=== PATIENT | male | born 1965 | race Caucasian/White ===

== ENCOUNTER 2023-02-07 08:49 | Emergency (ER) | payer OTHER, SELFPAY ==
[2023-02-07] VITALS (8 sets, daily range): BP systolic 101–132; BP diastolic 73–88; PULSE 74–96; RESP 16–18; TEMP 36.7; O2SAT 94–97; BMI 24.3
--- NOTE | 2023-02-07 09:08 | ED.GENADULT ---
HPI - General Adult General Time Seen by Provider: 09:08 Date Seen: 02/07/23 Chief complaint: Fever Stated complaint: hot flashes, feeling faint Time Seen by Provider: 02/07/23 08:57 Source: patient and RN notes reviewed Mode of arrival: ambulatory Limitations: no limitations History of Present Illness HPI narrative: This 57-year-old male is coming in with complaint of hot flashes, possible fevers. He is having episodic sweats and feeling hot. When I come into the room, he has cool washcloth on his forehead as he was feeling Related Data Home Medications Medication Instructions Recorded Confirmed No Known Home Medications 02/07/23 02/07/23 Allergies Allergy/AdvReac Type Severity Reaction Status Date / Time No Known Drug Allergies Allergy Verified 02/07/23 09:03 Review of Systems Status of ROS: Reports: 6 or more systems reviewed and unremarkable except as noted in History and below PFSH PFSH Social History Smoking Status: Former smoker How often do you have a drink containing alcohol: never AUDIT-C Alcohol total score: 0 Non-prescribed substance use: denies use Non-prescribed substance use details: 3 months off of marijuana Exam Const: Vital Signs, click to edit/add: Vital Signs - 24 hr 02/07/23 09:03 02/07/23 09:16 02/07/23 10:03 Temperature 98.1 F Pulse Rate [Pulse Oximeter] 85 78 Pulse Rate [orthos tatic lying Left P ulse Oximeter] Pulse Rate [orthos tatic sitting Left Pulse Oximeter] Pulse Rate [orthos tatic standing Lef t Pulse Oximeter] Respiratory Rate 18 18 Blood Pressure [Ri ght Upper Arm] 122/84 132/84 Blood Pressure [or thostatic lying Ri ght Arm] Blood Pressure [or thostatic sitting Right Arm] Blood Pressure [or thostatic standing Right Arm] Pulse Oximetry 94 96 96 Oxygen Delivery Me thod Room Air Room Air 02/07/23 10:06 02/07/23 10:06 02/07/23 10:07 Temperature Pulse Rate [Pulse Oximeter] 74 81 Pulse Rate [orthos tatic lying Left P ulse Oximeter] 74 Pulse Rate [orthos tatic sitting Left Pulse Oximeter] 81 Pulse Rate [orthos tatic standing Lef t Pulse Oximeter] 86 Respiratory Rate 16 16 Blood Pressure [Ri ght Upper Arm] 121/77 125/82 Blood Pressure [or thostatic lying Ri ght Arm] 121/77 Blood Pressure [or thostatic sitting Right Arm] 125/82 Blood Pressure [or thostatic standing Right Arm] 101/73 Pulse Oximetry 96 96 Oxygen Delivery Me thod 02/07/23 10:08 Temperature Pulse Rate [Pulse Oximeter] 96 Pulse Rate [orthos tatic lying Left P ulse Oximeter] Pulse Rate [orthos tatic sitting Left Pulse Oximeter] Pulse Rate [orthos tatic standing Lef t Pulse Oximeter] Respiratory Rate 16 Blood Pressure [Ri ght Upper Arm] 101/73 Blood Pressure [or thostatic lying Ri ght Arm] Blood Pressure [or thostatic sitting Right Arm] Blood Pressure [or thostatic standing Right Arm] Pulse Oximetry 96 Oxygen Delivery Me thod This 57-year-old male is alert, interactive, no apparent distress. Sclera clear, conjugate gaze, symmetrical facial function. Anterior nares appear normal, mucosa looks normal. Oropharynx with normal mucosa, posterior pharynx looks normal, tongue protrudes midline. Both canals are blocked with cerumen, external ears normal. Neck is supple, no cervical adenopathy, no thyromegaly masses or nodules, no jugular venous distension. He sits up easily, lungs are clear, good air entry, no wheezing or crackles. CV regular rate and rhythm, no murmur, normal S1-S2, no S3 or S4. Abdomen is soft, nontender, nondistended, no organomegaly. Arms and legs are grossly neurologically intact. Patient was ambulatory into the ED of his own accord. I see no rash on inspection skin visualized. Documenting provider has reviewed patient's vital signs: yes Course Course ED Course: It seems that this patient is describing hot flashes but fevers certainly could be a possibility. Need to consider fever of unknown origin. Did review [employer]To[employer], will follow their initial pathway as far as labs. Will be getting a chest x-ray. Will also obtain EKG and troponin, have nursing staff do orthostatic vitals given that he felt a bit faint this morning. Differential is broad at this time, could be infectious and multiple systems of infectious etiology or possible including but not limited to endocarditis, respiratory infection, viral pathology, tuberculosis, HIV, do need to consider cardiac manifestations as well. EKG is already reviewed in is reassuring. Will have him on pulse oximetry while here. Reevaluation(s) Time of Reevaluation #1: 09:38 Reevaluation #1: Patient observed ambulating to and fro from his chest x-ray. Time of Reevaluation #2: 11:46 Reevaluation #2: Reviewed with patient that he is COVID positive, chest x-ray is not showing any evidence of pneumonia, although her labs are stable. He is not feeling any chest pain, not short of breath, not hypoxic. I do not feel he needs any advanced imaging. His biggest complaints are that he took the NyQuil and then felt faint after that. He is having the night sweats, decreased appetite, insomnia issues on further discussion. He really believes his symptoms have been present since the beginning of January, thus, he does not meet criteria for treatment. He certainly out of the treatment window and have reviewed that with him. I reviewed with him that we unfortunately have nothing to fix his symptoms. He can try [id number] medicines. He asked if was located use ibuprofen, he certainly can. Would recommend that he continue to observe his symptoms, he may be someone that has more prolonged COVID symptoms, did review long COVID. This is his 1st episode of COVID. He may anticipate a little longer illness since this is potentially his 1st exposure to COVID. We discussed signs and symptoms for him to need to return to the ED such as worsening of his symptoms, chest pain or shortness of breath. If he is just not improving over the next 1-2 weeks, follow up in clinic would be appropriate. Did review with him that we did start on initial workup of night sweats/fever of unknown origin. I do not feel that we need to proceed down that pathway as we do have a source with him being COVID positive. Reviewed his lab work. Vital Signs Vital signs: Initial Vital Signs Temperature 98.1 F 02/07/23 09:03 Temperature Source Temporal Artery Scan 02/07/23 09:03 Pulse Rate 85 02/07/23 09:03 Respiratory Rate 18 02/07/23 09:03 Blood Pressure 122/84 02/07/23 09:03 Blood Pressure Mean 96 02/07/23 09:03 Blood Pressure Position Sitting 02/07/23 09:03 Pulse Oximetry 94 02/07/23 09:03 Oxygen Delivery Method Room Air 02/07/23 09:03 Vital Signs Temperature 98.1 F 12/14/23 09:03 Pulse Rate 85 02/07/23 09:03 Respiratory Rate 18 02/07/23 09:03 Blood Pressure 122/84 02/07/23 09:03 Pulse Oximetry 94 02/07/23 09:03 Oxygen Delivery Method Room Air 02/07/23 09:03 Temperature 98.1 F 02/07/23 09:03 Pulse Rate 96 02/07/23 10:08 Respiratory Rate 16 02/07/23 10:08 Blood Pressure 101/73 02/07/23 10:08 Pulse Oximetry 96 02/07/23 10:08 Oxygen Delivery Method Room Air 02/07/23 10:03 Medical Decision Making Lab Data Lab results reviewed: Yes I reviewed the patient's lab results Labs: Lab Results 02/07/23 02/07/23 02/07/23 Range/Units 09:00 09:19 09:25 WBC 5.60 (4.50-11.00) K/uL RBC 5.23 (4.30-5.90) m/uL Hgb 15.4 (13.5-17.5) gm/dL Hct 44.4 (37.0-53.0) % MCV 85 (80-100) fL MCH 29 (26-34) pg MCHC 35 (32-36) gm/dL RDW Coeff of Nilam 12.4 (11.5-15.5) % Plt Count 224 (140-440) K/uL Neut % (Auto) 75.2 H (42.0-72.0) % Lymph % (Auto) 14.6 L (20-44) % [place] % (Auto) 7.7 (0.0-11.0) % Eos % (Auto) 2.3 (0.0-7.0) % Baso % (Auto) 0.2 (0.0-3.0) % Neut # (Auto) 4.20 (1.7-7.0) K/uL Lymph # (Auto) 0.80 L (0.90-2.90) K/uL [place] # (Auto) 0.40 (0.00-0.90) K/UL Eos # (Auto) 0.13 (0.00-0.50) K/uL Baso # (Auto) 0.01 (0.00-0.30) K/uL Abs Immat Gran (auto) 0.00 (0.00-0.30) K/uL Imm/Tot Granulo (auto) 0.0 % ESR 2 (2-15) mm/hr Sodium 135 (135-149) mmol/L Potassium 4.0 (3.6-5.1) mmol/L Chloride 106 (96-114) mmol/L Carbon Dioxide 22 (20-32) mmol/L Anion Gap 7 (7-15) mEq/L BUN 14 (7-30) mg/dL Creatinine 0.8 (0.5-1.5) mg/dL Estimated Creat Clear 99.75 Estimated GFR 104 ml/min Glucose 122 H (60-115) mg/dL Calcium 8.2 L (8.4-10.6) mg/dL Total Bilirubin 0.9 (0.1-1.5) mg/dL AST 29 (12-35) U/L ALT 31 (4-50) U/L Alkaline Phosphatase 83 (40-150) U/L Troponin I < 0.01 L (0.01-0.04) ng/mL C-Reactive Protein < 0.5 L (0.5-1.0) mg/dL Total Protein 6.6 (6.0-8.3) g/dL Albumin 4.1 (3.3-5.0) g/dL TSH 1.050 (0.270-4.200) uIU/mL Urine Color Ashley A (Yellow) Urine Appearance Clear (Clear) Urine pH 6.5 (5.0-8.5) Ur Specific [place] 1.025 (1.000-1.030) Urine Protein Trace A (Negative) Urine Glucose (UA) Negative (Negative) Urine Ketones Trace A (Negative) Urine Blood Trace-intact A (Negative) Urine Nitrite Negative (Negative) Urine Bilirubin 1+ A (Negative) Urine Urobilinogen 2.0 A (0.2-1.0) Ur Leukocyte Esterase Negative (Negative) Urine RBC 0-2 (0-2) Urine WBC 0-2 (0-5) Ur Squamous Epith Cells Few (None-Few) Amorphous Sediment Few A (None) Urine Bacteria Few A (None) Urine Mucus Few A (None) SARS-CoV-2 (PCR) POSITIVE SARS-CoV-2 A (Negative) HIV 1&2 Ab/P24 Ag 4thGn Negative (Negative) Influenza Type A (PCR) Negative PCR FLU A (Negative) Influenza Type B (PCR) Negative PCR FLU B (Negative) RSV (PCR) Negative PCR RSV (Negative) Imaging Data Chest x-ray: Attestation: I have reviewed the pertinent imaging results. My impression: I see no acute pathology on my preliminary review of his chest x-ray. Radiologist's impression: Patient: ALLYSSA GOODE Facility:?[facility] Patient ID:?[id number] Site Patient ID:?[id number]. Site :?[id number] Study:?XRay Chest 2V-02/07/2023 9:42:45 AM Ordering Physician:Nickolas Ennis Final Report: INDICATION: Hot flashes, night sweats, congestion and weakness COMPARISON: None TECHNIQUE: PA and lateral views of the chest were acquired FINDINGS: TUBES AND LINES: None. HEART AND MEDIASTINUM: The heart size is normal. The mediastinal contour appears normal for patient age. LUNGS AND PLEURAL SPACES: The lungs appear normal.The pleural spaces are unremarkable. OSSEOUS STRUCTURES: Age-appropriate appearance. No acute focal finding. IMPRESSION: No evidence of active pulmonary disease. Dictated by Rodney Hernández MD @ 02/07/2023 10:02:20 AM (Electronic Signature) ECG Data Attestation: I personally reviewed and interpreted this ECG as follows: (Normal sinus rhythm, 74 beats per minute. No evidence of ischemia. QT corrected 426 milliseconds.) Prior ECG tracings: not available for review Discharge Plan Discharge Clinical Impression: COVID-19 Patient Disposition: Home, Self-Care Condition: Stable Instructions: COVID-19 (Coronavirus Disease 2019) (ED), How to Recover from COVID-19 at Home (ED), Long COVID (ED) Additional Instructions: It is very important for you to stay hydrated. Try to eat some small snacks during the day, your appetite will eventually improve as this illness goes away. You still may be symptomatic for days to weeks, some people do suffer from lung COVID. We do not know how your recovery is going to be. Certainly if you feel that you are becoming progressively ill, have chest pain or difficulty breathing/shortness of breath, we do want you to return to the ER. If you are having your current symptoms and not worsening but still symptomatic in 1-2 weeks, would recommend a recheck in the clinic. Our clinic phone number to get scheduled for a follow-up is [phone]. Activity Level: Activity as Tolerated Discharge Diet: Regular Prescriptions: No Action No Known Home Medications Follow Up/Referrals: Carrington Ruvalcaba MD [Primary Care Provider] - Stand Alone Forms: Dispatch Info Instructions
--- NOTE | 2023-02-07 09:19 | CRLHL7_ITS ---
For Patients: As a result of the Century Cures Act, medical imaging exams and procedure reports are released immediately into your electronic medical record. You may view this report before your referring provider. If you have questions, please contact your health care provider. INDICATION: Hot flashes, night sweats, congestion and weakness COMPARISON: None TECHNIQUE: PA and lateral views of the chest were acquired FINDINGS: TUBES AND LINES: None. HEART AND MEDIASTINUM: The heart size is normal. The mediastinal contour appears normal for patient age. LUNGS AND PLEURAL SPACES: The lungs appear normal.The pleural spaces are unremarkable. OSSEOUS STRUCTURES: Age-appropriate appearance. No acute focal finding. IMPRESSION: No evidence of active pulmonary disease. Dictated by Rodney Hernández MD @ 02/07/2023 10:02:20 AM (Electronically Signed)
[2023-02-07 09:35] LABS: Basophils Absolute Auto 0.01 K/uL (0.00-0.30); Basophils Percent Auto 0.2 % (0.0-3.0); Eosinophils Absolute Auto 0.13 K/uL (0.00-0.50); Eosinophils Percent Auto 2.3 % (0.0-7.0); Hematocrit 44.4 % (37.0-53.0); Hemoglobin* 15.4 gm/dL (13.5-17.5); Lymphocytes Percent Auto 14.6 % (20-44); Mean Corpuscular HGB Conc 35 gm/dL (32-36); Mean Corpuscular Hemoglobin 29 pg (26-34); Mean Corpuscular Volume 85 fL (80-100); Monocytes Percent Auto 7.7 % (0.0-11.0); Neutrophils Percent Auto 75.2 % (42.0-72.0); Platelet Count* 224 K/uL (140-440); RDW Coefficient of Variation % 12.4 % (11.5-15.5); Red Blood Count 5.23 m/uL (4.30-5.90)
[2023-02-07 09:38] LABS: Slide Review Reflex No
[2023-02-07 09:46] LABS: PCR FLU A Negative PCR FLU A (Negative); PCR FLU B Negative PCR FLU B (Negative); PCR RSV Negative PCR RSV (Negative)
[2023-02-07 09:54] LABS: SARS PCR* POSITIVE SARS-CoV-2 (Negative)
[2023-02-07 09:57] LABS: Albumin* 4.1 g/dL (3.3-5.0); Chloride* 106 mmol/L (96-114)
[2023-02-07 09:58] LABS: Sodium* 135 mmol/L (135-149)
[2023-02-07 10:00] LABS: Creatinine* 0.8 mg/dL (0.5-1.5); Est. Creatinine Clearance* 99.75; Estimated Glomerular Filt Rate 104 ml/min
[2023-02-07 10:01] LABS: Alanine Aminotransferase* 31 U/L (4-50); Alkaline Phosphatase* 83 U/L (40-150); Anion Gap 7 mEq/L (7-15); Aspartate Amino Transferase* 29 U/L (12-35); Bilirubin Total* 0.9 mg/dL (0.1-1.5); Blood Urea Nitrogen* 14 mg/dL (7-30); Calcium* 8.2 mg/dL (8.4-10.6); Carbon Dioxide* 22 mmol/L (20-32); Glucose* 122 mg/dL (60-115); Total Protein* 6.6 g/dL (6.0-8.3)
[2023-02-07 10:08] LABS: C Reactive Protein* < 0.5 mg/dL (0.5-1.0)
[2023-02-07 10:10] LABS: Appearance Urine Clear (Clear); Bilirubin Urine 1+ (Negative); Blood Urine Trace-intact (Negative); Color Urine Amber (Yellow); Glucose Urine Negative (Negative); Ketones Urine Trace (Negative); Leukocyte Esterase Urine Negative (Negative); Nitrite Urine Negative (Negative); Protein Urine Trace (Negative); Specific Gravity Urine 1.025 (1.000-1.030); pH Urine 6.5 (5.0-8.5)
[2023-02-07 10:13] LABS: Erythrocyte SedimentationRate* 2 mm/hr (2-15)
[2023-02-07 10:14] LABS: Troponin I* < 0.01 ng/mL (0.01-0.04)
[2023-02-07 10:16] LABS: Amorphous Sediment Urine Few; Bacteria Urine Few; Mucus Urine Few; RBC Urine 0-2 (0-2); Squamous Epithelial Cell Urine Few (None-Few); WBC Urine 0-2 (0-5)
[2023-02-07 10:53] LABS: HIV 1/2/P24 Combo Screen* Negative (Negative)
== END 2023-02-07 12:01 | disposition home or self-care (01) ==
PROVIDERS: Emergency Provider Family Medicine; PCP Family Medicine
DX: U07.1 COVID-19 (principal)
CPT/HCPCS: 36415; 71046; 80053; 81001; 84443; 84484; 85025; 85651; 86140; 86703; 87040; 87086; 87631; 93005; 94761; 95992; 99284; 99285

== ENCOUNTER 2023-02-10 13:23 | Emergency (ER) | payer OTHER, SELFPAY ==
[2023-02-10 13:25] VITALS: BP 125/81; PULSE 97; RESP 22; TEMP 36.9; O2SAT 95; BMI 24.3
--- NOTE | 2023-02-10 13:50 | ED.GENADULT ---
HPI - General Adult General Chief complaint: Unspecified Complaint, Adult Stated complaint: Insomnia medication Time Seen by Provider: 02/10/23 13:26 Source: patient Mode of arrival: ambulatory Limitations: no limitations History of Present Illness HPI narrative: 57-year-old male presenting today with inability to sleep for the last 2 days. Patient was diagnosed with COVID-19 on 02/07/2023. He states that since then he disc can not sleep. He states that he goes to bed at night in then starts sweating. He then has to get up and pace for a while and then he gets cold. Gets back in bed and start sweating again. This goes on all night long he is unable to sleep. He is not sure if he closes eyes at any point in time or not. He states that he had also does not sleep during the day. He states he never had an issue with sleep before. He takes no medications. He also complains of decreased appetite and malaise and fatigue. He is wondering if these things are related to COVID-19 or not. He has been drinking Pedialyte at the recommendation of his daughter. This stays down without difficulty. He has not been vomiting. He denies headache, blurry vision. No hallucinations. No agitation or tremor. Related Data Home Medications Medication Instructions Recorded Confirmed No Known Home Medications 02/07/23 02/10/23 Allergies Allergy/AdvReac Type Severity Reaction Status Date / Time No Known Drug Allergies Allergy Verified 02/10/23 13:29 Review of Systems Status of ROS: Reports: 10 or more systems reviewed and unremarkable except as noted in History and below PFSH PFS Social History Smoking Status: Former smoker Do you use any of these nicotine containing products: None Second hand tobacco smoke exposure: No How often do you have a drink containing alcohol: never AUDIT-C Alcohol total score: 0 Non-prescribed substance use: denies use Non-prescribed substance use details: 3 months off of marijuana Exam Narrative: Exam Narrative: Well-nourished well-developed patient in no acute distress. Alert and oriented x3. Answers questions appropriately. Mood and affect are appropriate. Thoughts are goal oriented and rational. No tangential or magical thinking noted. Patient speaks in full sentences without needing to catch his breath. Speech is not slurred or pressured. HEENT: Normocephalic atraumatic. Pupils are equally round reactive to light. Extraocular muscles are intact. Conjunctivae are moist without any icterus noted. Moist mucous membranes. Cardiovascular: Heart is regular rate and rhythm. Lungs: Clear to auscultation bilaterally. Abdomen: Soft and nontender nondistended with normal bowel sounds. Skin: Well perfused without any obvious rashes. Const: Vital Signs, click to edit/add: Vital Signs - 24 hr 02/10/23 13:25 Temperature 98.4 F Pulse Rate [Pulse Oximeter] 97 Respiratory Rate 22 Blood Pressure [Ri t Upper Arm] 125/81 Pulse Oximetry 95 Oxygen Delivery Me thod Room Air Course Vital Signs Vital signs: Initial Vital Signs Temperature 98.4 F 02/10/23 13:25 Temperature Source Temporal Artery Scan 02/10/23 13:25 Pulse Rate 97 02/10/23 13:25 Respiratory Rate 22 02/10/23 13:25 Blood Pressure 125/81 02/10/23 13:25 Blood Pressure Mean 95 02/10/23 13:25 Blood Pressure Position Sitting 02/10/23 13:25 Pulse Oximetry 95 02/10/23 13:25 Oxygen Delivery Method Room Air 02/10/23 13:25 Vital Signs Temperature 98.4 F 02/10/23 13:25 Pulse Rate 97 02/10/23 13:25 Respiratory Rate 22 02/10/23 13:25 Blood Pressure 125/81 02/10/23 13:25 Pulse Oximetry 95 02/10/23 13:25 Oxygen Delivery Method Room Air 02/10/23 13:25 Temperature 98.4 F 02/10/23 13:25 Pulse Rate 97 02/10/23 13:25 Respiratory Rate 22 02/10/23 13:25 Blood Pressure 125/81 02/10/23 13:25 Pulse Oximetry 95 02/10/23 13:25 Oxygen Delivery Method Room Air 02/10/23 13:25 Medical Decision Making MDM Narrative Medical decision making narrative: 57-year-old male with COVID-19 in difficulty sleeping. We discussed all symptoms are related to COVID-19, including the ones that he is experiencing. I do recommend [id number] medications such as Benadryl. He states that he tried NyQuil a few days ago and it made him very jittery he does not wish to continue that. Patient is quite concerned because he does not have any money to purchase any medications but he thinks that he can have his daughter helps him by Benadryl. We will also send him home with 1 tablet of hydroxyzine to take tonight to see if this helps. Patient is not seen manic, his speech is not pressured. He is not disheveled or erratic. I do not think further workup, including psych evaluation is needed at this time. Medical Records Medical records reviewed: Yes I reviewed the patient's medical records Discharge Plan Discharge Clinical Impression: COVID-19, Difficulty sleeping Patient Disposition: Home, Self-Care Condition: Stable Additional Instructions: Will be sent home with 1 tablet of hydroxyzine today. This medicine should help you sleep. Take it approximately 1 hour before bedtime. Also recommend the purchased Benadryl [id number]. You can take 1 tablet before bedtime or if you wake up in the middle of the night. You should not take the hydroxyzine and the Benadryl at the same time. The generic name for Benadryl is diphenhydramine. If you feel that this is not helping, you should follow-up with your primary care provider in the clinic. You will continue to feel symptoms of COVID-19, which you have been diagnosed with, including sweating at night, difficulty eating, and fatigue for several more days. Prescriptions: No Action No Known Home Medications Follow Up/Referrals: Carrington Ruvalcaba MD [Primary Care Provider] - Stand Alone Forms: [employer] Info Instructions
[2023-02-10] MEDS: hydrOXYzine pamoate 25 MG CAPSULE PO (14:00)
== END 2023-02-10 14:08 | disposition home or self-care (01) ==
PROVIDERS: Emergency Provider Family Medicine
DX: G47.00 Insomnia, unspecified (principal); U07.1 COVID-19
CPT/HCPCS: 95992; 99283; A9270

== ENCOUNTER 2023-02-12 08:48 | Emergency (ER) | payer OTHER, SELFPAY ==
[2023-02-12 08:56] VITALS: BP 142/90; PULSE 89; RESP 18; TEMP 37.3; O2SAT 95; BMI 24.3
--- NOTE | 2023-02-12 09:16 | ED.GENADULT ---
HPI - General Adult General Date Seen: 02/12/23 Chief complaint: Unspecified Complaint, Adult Stated complaint: needs med Time Seen by Provider: 02/12/23 08:52 Source: patient Mode of arrival: ambulatory Limitations: no limitations History of Present Illness HPI narrative: Patient is a has 57-year-old male presents for department for insomnia. He states that his symptoms with past few days since he was diagnosed with COVID-19. He was in the emergency department a couple days ago for the same symptoms was given hydroxyzine. He states that help sleep well. He was told to take Benadryl over the counter. He tried a different sleep aid which not help. He had has a primary care follow-up on March 01 and is hoping to get more hydroxyzine for his please. Denies for chest pain, shortness of breath, lightheadedness, dizziness, numbness, weakness, fevers, chills, abdominal pain. Denies any other symptoms Related Data Home Medications Medication Instructions Recorded Confirmed hydroxyzine HCl 10 mg tablet 10 mg PO QHS 02/12/23 02/12/23 Previous Rx's Medication Instructions Recorded hydroxyzine HCl 25 mg tablet 25 mg PO QHS #17 tabs 02/12/23 Allergies Allergy/AdvReac Type Severity Reaction Status Date / Time No Known Drug Allergies Allergy Verified 02/12/23 09:00 Review of Systems Status of ROS: Reports: 10 or more systems reviewed and unremarkable except as noted in History and below [facility] Social History Smoking Status: Former smoker Do you use any of these nicotine containing products: None Second hand tobacco smoke exposure: No How often do you have a drink containing alcohol: never AUDIT-C Alcohol total score: 0 Non-prescribed substance use: denies use Non-prescribed substance use details: 3 months off of marijuana Exam Narrative: Exam Narrative: Const: Well-nourished, Well-developed, in no distress Eyes: PERRL, no conjunctival injection, and symmetrical lids HENT: Atraumatic external nose and ears. Moist mucous membranes. Neck: Symmetric, trachea midline, No thyromegaly. CVS: RRR, No murmurs or gallops. Peripheral pulses 2+ and equal in all extremities RESP: Unlabored respiratory effort. Clear to auscultation bilaterally. GI: Nontender/Nondistended, No rebound or guarding. MSK:Extremities w/o deformity, Normal Active ROM Skin: Warm, Dry. No rashes or lesions. Neuro: Normal Muscle tone, No focal neurological deficits. Psych: Awake, Alert, & Oriented x3. Appropriate mood and affect. Const: Vital Signs, click to edit/add: Vital Signs - 24 hr 02/12/23 08:56 Temperature 99.1 F Pulse Rate [Right Pulse Oximeter] 89 Respiratory Rate 18 Blood Pressure [Ri ght Upper Arm] 142/90 H Pulse Oximetry 95 Oxygen Delivery Me thod Room Air Course Vital Signs Vital signs: Initial Vital Signs Temperature 99.1 F 02/12/23 08:56 Temperature Source Temporal Artery Scan 02/12/23 08:56 Pulse Rate 89 02/12/23 08:56 Pulse Rhythm Regular 02/12/23 08:56 Respiratory Rate 18 02/12/23 08:56 Blood Pressure 142/90 H 02/12/23 08:56 Blood Pressure Mean 107 H 02/12/23 08:56 Blood Pressure Position Semi-Fowlers 02/12/23 08:56 Pulse Oximetry 95 02/12/23 08:56 Oxygen Delivery Method Room Air 02/12/23 08:56 Vital Signs Temperature 99.1 F 02/12/23 08:56 Pulse Rate 89 02/12/23 08:56 Respiratory Rate 18 02/12/23 08:56 Blood Pressure 142/90 H 02/12/23 08:56 Pulse Oximetry 95 02/12/23 08:56 Oxygen Delivery Method Room Air 02/12/23 08:56 Temperature 99.1 F 02/12/23 08:56 Pulse Rate 89 02/12/23 08:56 Respiratory Rate 18 02/12/23 08:56 Blood Pressure 142/90 H 02/12/23 08:56 Pulse Oximetry 95 02/12/23 08:56 Oxygen Delivery Method Room Air 02/12/23 08:56 Medical Decision Making MDM Narrative Medical decision making narrative: Patient is a 57-year-old male presenting to emergency department for difficulty sleeping. He states the only medicine that has helped his hydroxyzine. He is not taking the Benadryl yet. Tried other [id number]-[id number] sleep meds without improvement. She states symptoms started he was diagnosed with COVID. Cannot get in for primary care urgent March 01. I spoke to him about the Benadryl and the but he should try taking it rate before the hydroxyzine to flare again mother will give him a prescription for hydroxyzine to help to get him through to his appointment. Discharge Plan Discharge Clinical Impression: Difficulty sleeping Patient Disposition: Home, Self-Care Condition: Stable Instructions: Insomnia (ED) Additional Instructions: 1st tried taking Benadryl 25-50 mg (1-2 pills) at night for sleeping. Do not take Benadryl and hydroxyzine at the same time control, try to take them 6 hours apart. If that does not help you can do the hydroxyzine. Prescriptions: New hydroxyzine HCl 25 mg tablet 25 mg PO QHS Qty: 17 0RF No Action hydroxyzine HCl 10 mg tablet 10 mg PO QHS Follow Up/Referrals: Provider,Not a Local [Primary Care Provider] - Stand Alone Forms: [facility] Info Instructions
== END 2023-02-12 09:40 | disposition home or self-care (01) ==
LOC: ED 09:32
PROVIDERS: Emergency Provider Student in an Organized Health Care Education/Training Program
DX: G47.00 Insomnia, unspecified (principal)
CPT/HCPCS: 95992; 99281; 99282